=== PATIENT | male | born 1990 | race African-American/Black ===

== ENCOUNTER 2019-01-11 21:17 | Emergency (ER) | payer SELFPAY ==
[~2019-01-11] VITALS: Ht 162.5 cm; Wt 59.0 kg
[2019-01-11 22:05] LABS: BILIRUBIN NEGATIVE (NEGATIVE); BLOOD NEGATIVE (NEGATIVE); CLARITY CLEAR (CLEAR); COLOR YELLOW (YELLOW); GLUCOSE NEGATIVE (NEGATIVE); KETONE 1+ (NEGATIVE); LEUKO ESTERASE NEGATIVE (NEGATIVE); NITRITE NEGATIVE (NEGATIVE); PH 6.5 (5.0-9.0)
[2019-01-11 22:12] LABS: URINE AMPHETAMINES < 1000 (1000ng/ml); URINE BARBITURATES < 200 (200ng/ml); URINE BENZODIAZEPINES < 200 (200ng/ml); URINE CANNABINOIDS (THC) > 50 (50ng/ml); URINE COCAINE < 300 (300ng/ml); URINE METHADONE < 300 (300ng/ml); URINE OPIATES < 300 (300ng/ml)
[2019-01-11 22:13] LABS: BASO % 0.2 % (0.0-1.0); EOS # 0.1 10*3/uL (0.0-0.4); EOS % 0.7 % (1.0-4.0); HEMATOCRIT 43.6 % (42.0-52.0); LYMPH # 0.9 10*3/uL (1.3-4.4); LYMPH % 8.7 % (27.0-41.0); MEAN CORPUSCULAR HGB 32.3 pg (27.0-31.0); MEAN CORPUSCULAR HGB CONC 34.4 g/dl (33.0-37.0); MEAN PLATELET VOLUME 10.1 fl (9.6-12.3); MONO # 0.6 10*3/uL (0.1-1.0); MONO % 5.2 % (3.0-9.0); NEUT # 9.1 10*3/uL (2.3-7.9); NEUT % 84.9 % (47.0-73.0); PLATELET COUNT AUTOMATED 193 10*3/uL (130-400); RED BLOOD COUNT 4.64 10*6/uL (4.50-5.90); RED CELL DISTRI WIDTH 12.3 % (0-14.5); WHITE BLOOD COUNT 10.7 10*3/uL (4.8-10.8)
[2019-01-11 22:21] LABS: URINE PHENCYCLIDINE < 25 (25ng/ml)
[2019-01-11 22:27] LABS: ALBUMIN 4.4 gm/dl (3.1-4.5); ALKALINE PHOSPHATASE 72 U/L (45-117); BUN 11 mg/dl (7-24); CHLORIDE 106 mmol/L (98-107); CREATININE 0.99 mg/dL (0.70-1.30); POTASSIUM 3.4 mmol/L (3.5-5.1); SGOT/AST 26 IU/L (3-35); SGPT/ALT 25 U/L (12-78); SODIUM 139 mmol/L (136-145)
[2019-01-11 22:30] LABS: MUCOUS TRACE; WBC 0-2 wbc/hpf (0-5)
[2019-01-11 22:32] LABS: ACETAMINOPHEN (TYLENOL) < 5.0 ug/ml (10-30)
[2019-01-11 22:33] LABS: ETHYL ALCOHOL < 3.0 mg/dl (<3)
== END 2019-01-12 03:44 | disposition home or self-care (01) ==
LOC: ED 21:17
PROVIDERS: Emergency Medicine Emergency Medical Services
DX: F12.10 Cannabis abuse, uncomplicated (principal); E86.0 Dehydration; R41.0 Disorientation, unspecified; R44.3 Hallucinations, unspecified

== ENCOUNTER 2019-02-15 15:46 | Emergency (ER) | payer MEDICAID ==
[~2019-02-15] VITALS: Ht 160 cm; Wt 63.5 kg
[2019-02-15 16:45] LABS: BILIRUBIN NEGATIVE (NEGATIVE); BLOOD NEGATIVE (NEGATIVE); CLARITY CLEAR (CLEAR); COLOR YELLOW (YELLOW); GLUCOSE NEGATIVE (NEGATIVE); KETONE NEGATIVE (NEGATIVE); LEUKO ESTERASE TRACE (NEGATIVE); NITRITE NEGATIVE (NEGATIVE); UROBILINOGEN 0.2 E.U./dl (0.2-1.0)
[2019-02-15] MEDS ORDERED: ZOVIRAX400 MG PO (16:50)
[2019-02-15 16:54] LABS: BACTERIA TRACE; WBC 0-2 wbc/hpf (0-5)
[2019-02-16 21:10] LABS: GONOCOCCUS BY NAA Negative (Negative)
== END 2019-02-15 16:50 | disposition home or self-care (01) ==
LOC: ED 15:46
PROVIDERS: Nurse Practitioner Family
DX: A60.00 Herpesviral infection of urogenital system, unspecified (principal)

== ENCOUNTER 2019-03-20 14:36 | Emergency (ER) | payer OTHER ==
[~2019-03-20] VITALS: Ht 165.1 cm; Wt 63.5 kg
[~2019-03-20 14:36] MED LIST: ZOVIRAX400 MG PO
[2019-03-20] MEDS ORDERED: NYSTATIN CREAM15 GM T (15:34)
[2019-03-20] MEDS ORDERED: VISTARIL25 MG PO (15:36)
== END 2019-03-20 15:46 | disposition home or self-care (01) ==
LOC: ED 14:36
DX: B37.2 Candidiasis of skin and nail (principal); Z79.899 Other long term (current) drug therapy

== ENCOUNTER 2019-03-31 15:25 | Emergency (ER) | payer OTHER ==
[~2019-03-31] VITALS: Ht 165.1 cm; Wt 59.0 kg
[~2019-03-31 15:25] MED LIST changes: +NYSTATIN CREAM15 GM T; +VISTARIL25 MG PO
[2019-03-31] MEDS ORDERED: AUGMENTIN 875875 MG PO (17:06)
== END 2019-03-31 17:25 | disposition home or self-care (01) ==
LOC: ED 15:25
DX: J32.9 Chronic sinusitis, unspecified (principal)

== ENCOUNTER → 2019-04-18 | Outpatient (CLI) | payer OTHER ==
[~2019-04-18] MED LIST changes: +AUGMENTIN 875875 MG PO; +ZOVIRAX800 MG PO
== END | disposition home or self-care (01) ==
LOC: RESCLI 00:52
DX: Z11.3 Encounter for screening for infections with a predominantly sexual mode of transmission (principal); L73.9 Follicular disorder, unspecified; Z71.6 Tobacco abuse counseling; Z88.8 Allergy status to other drugs, medicaments and biological substances

== ENCOUNTER 2019-05-21 11:16 | Emergency (ER) | payer OTHER ==
[~2019-05-21] VITALS: Wt 63.5 kg
[~2019-05-21 11:16] MED LIST changes: -ZOVIRAX800 MG PO
[2019-05-21] MEDS ORDERED: ZOVIRAX800 MG PO (11:48)
[2019-05-21] MEDS ORDERED: NYSTATIN CREAM15 GM T (11:48)
[2019-05-24 15:07] LABS: HSV 2 IGM AB <1:10 titer (<1:10); HSV I IGM ABS <1:10 titer (<1:10)
== END 2019-05-21 11:27 | disposition home or self-care (01) ==
LOC: ED 11:16
PROVIDERS: Nurse Practitioner Family
DX: A60.01 Herpesviral infection of penis (principal); B37.2 Candidiasis of skin and nail; Z79.2 Long term (current) use of antibiotics

== ENCOUNTER → 2019-05-25 | Outpatient (CLI) | payer OTHER ==
[~2019-05-25] MED LIST changes: +ZOVIRAX800 MG PO
[2019-05-26 06:07] LABS: HEPATITIS B SURFACE AG Negative (Negative); HEPATITIS C VIRUS ANTIBODY <0.1 s/co (0.0-0.9)
== END | disposition home or self-care (01) ==
LOC: LAB 14:17
PROVIDERS: Internal Medicine Nephrology
DX: Z11.3 Encounter for screening for infections with a predominantly sexual mode of transmission (principal)

== ENCOUNTER → 2019-07-21 | Outpatient (CLI) | payer OTHER ==
[2019-07-22 18:07] LABS: GONOCOCCUS BY NAA Negative (Negative)
== END | disposition home or self-care (01) ==
LOC: LAB 13:41
PROVIDERS: Family Medicine
DX: R53.83 Other fatigue (principal); R79.89 Other specified abnormal findings of blood chemistry

== ENCOUNTER → 2024-04-19 | Outpatient (CLI) | payer OTHER | END | disposition home or self-care (01) | LOC: RAD 15:46 | PROVIDERS: ATTEND Family Medicine | DX: S90.32XD Contusion of left foot, subsequent encounter (principal); M79.89 Other specified soft tissue disorders; X58.XXXD Exposure to other specified factors, subsequent encounter ==